=== PATIENT | male | born 1940 | race Caucasian/White ===

== ENCOUNTER 2025-10-13 17:48 | Inpatient (IN) | payer MEDICARE, OTHER, SELFPAY ==
[2025-10-13 10:20] VITALS: BP 139/71
[2025-10-13 10:40] LABS: Hematocrit 40.1 % (39.0-52.0); Hemoglobin 13.4 g/dL (13.0-18.0); Mean Corp Hgb Conc. 33.4 g/dL (33.0-37.0); Mean Corpuscular Volume 87.6 fL (80.0-94.0); Nucleated Red Blood Cells % 0 % (-); Platelet Count 212 10^3/uL (130-400); Red Cell Dist. Width 14.3 % (11.5-14.5)
[2025-10-13 10:59] LABS: ALT (SGPT) 22 U/L (0-50); AST (SGOT) 26 U/L (17-59); Albumin 4.6 g/dl (3.5-5.0); Alkaline Phosphatase 64 U/L (38-126); Blood Urea Nitrogen 58 mg/dl (9-20); Calcium 10.8 mg/dl (8.4-10.2); Carbon Dioxide 22 mmol/L (22-30); Chloride 104 mmol/L (98-107); Glucose 202 mg/dl (70-99); Lipase 82 U/L (23-300); Potassium 5.4 mmol/L (3.5-5.1); Sodium 137 mmol/L (135-145); Total Protein 7.1 g/dl (6.3-8.2); eGFR 11.09
[2025-10-13 11:03] LABS: Troponin I < 0.012 ng/ml
--- NOTE | 2025-10-13 12:51 | ED.GENMED ---
History of Present Illness
<Antwon Nunes PA-C - Last Filed: 10/13/25 18:43>
General
Chief Complaint: Abdominal Symptoms
Time Seen by Provider: 10/13/25 12:42
History of Present Illness
History of Present Illness:
85-year-old male with history of CKD stage IV presents to the emergency department for evaluation of fatigue and malaise associated with intractable vomiting that began last night. He is still passing flatus but denies bowel movements or diarrhea.
He is concerned that he ate something suspicious last night. Denies any dizziness or lightheadedness.
Review of Systems
<Antwon Nunes PA-C - Last Filed: 10/13/25 18:43>
Review of Systems
Allergies reviewed?: Yes
All Other Systems: ROS reviewed and negative except as documented in HPI and ROS
Phy Exam
<Antwon Nunes PA-C - Last Filed: 10/13/25 18:43>
Physical Exam
Physical Exam:
GEN: Well appearing, NAD, WDWN
HEENT: Oral mucosa moist, no scleral icterus
Cardiac: Regular rate
Lung: No respiratory distress, no tachypnea
Abdomen: Soft, generalized tenderness x 4 quadrants
MSK: No gross deformity or injuries
Skin: Good color, no pallor or jaundice, no rashes
Neuro: AO x3, moves all extremities freely
Psych: Calm, cooperative
Course
<Antwon Nunes PA-C - Last Filed: 10/13/25 18:43>
Orders/Labs/Results
Orders:
Orders
10/13/25 Breakfast
Clear Liquid
10/13/25 10:25
Electrocardiogram (*1) Urgent
Reason for Study: Abdominal Pain
EKG- Treatment ONCE
10/13/25 10:31
Complete Blood Count/With Diff Urgent
Comprehensive Metabolic Panel Urgent
Lipase Urgent
Troponin I Urgent
10/13/25 12:51
Electrocardiogram (*1) Urgent
Reason for Study: QTc Monitoring
EKG- Treatment ONCE
0.9% Sodium Chloride 1000 ml [Nss] 1,000 ml IV BOLUS
Ondansetron Injectable [Zofran] 4 mg IV NOW STA
10/13/25 13:56
CT Abd/pel Without Iv Or Oral Urgent
Comment:
Reason For Exam: abd pain, N/V
10/13/25 14:43
HYDROmorphone [Dilaudid] 0.5 mg IV NOW STA
10/13/25 Dinner
Clear Liquid
At Your Request: Full Participation
10/13/25 15:37
Piperacillin/Tazo 3.375 Gram [Zosyn] 3.375 gram in 50 ml IV NOW
10/13/25 16:28
Admit/Transfer Patient As Directed
Co-Sign Provider:
Level of Care: Inpatient admission
Assign to:: Medical/Surgical
Physician / Group: Htay
Diagnosis: Cholecystitis; RADHA
Reason for Hospitalization: IVFs, IV abx
Expected length of stay greater than two midnights?: Yes
ELOS- Estimated Length of Stay in days: 3
I certify the patient meets the requirements for IP care: Yes
PRN Pain Medication Management As Directed
May give lesser potent ordered pain med per pt: Yes
preference::
Protocol:: Medication orders for pain may be administered in a
manner that supports deferring to patient preference
when the pt is:
- Requesting an ordered lesser potent pain medication.
Least to most potent pain medications are defined
as: acetaminophen < NSAID < tramadol < opioids
(morphine, oxycodone, hydromorphone).
- Requesting a lesser dose of the same medication IF
ORDERED.
- Requesting a less intrusive route of administration
if both routes are prescribed by the provider (PO <
IV).
10/13/25 16:30
0.9% Sodium Chloride 1000 ml [Nss] 1,000 ml IV 100 mls/hr
10/13/25 16:31
Code Status As Directed
Resuscitation Status: Full Code
10/13/25 17:59
Acetaminophen [Tylenol] 650 mg PO Q4HPRN PRN mild pain / fever mild pain / fever
Dextrose 50%-Water [Dextrose 50% Syringe] 12.5 grams IV [id number] PRN
Glucagon [GlucaGen] 1 mg IM PRN PRN
HYDROmorphone [Dilaudid] 0.25 mg IV Q3HPRN PRN
Lorazepam [Ativan] 0.5 mg PO DAILYPRN PRN anxiety
Ondansetron Injectable [Zofran] 4 mg IV Q6HPRN PRN
10/13/25 17:59
SURGICAL CONSULT Routine
Consulting Provider: Clifford Salter
Was physician already notified: Yes
Activity As Directed
Activity Level: Out of Bed-Early Mobility
With Assistance
Bedside Glucose Monitoring As Directed
Frequency: AC&HS
Additional Instructions:: Change to q6h if pt on TPN, tube feeding or not eating
Bladder Scan As Directed
Follow Bladder Retention/Intermittent Cath Algorithm?: Yes
PRN if no void in __ hours: 6
Frequency: Per Retention Algorithm
If Bladder Scan Result >: 400
then:: Straight cath
I&O [Intake/ Output] As Directed
Frequency: q12h
Straight Cath As Directed
Frequency: Per Retention Algorithm
Additional Instructions: straight cath as needed per acute urinary retention algorithm for 24 hrs
Additional Instructions: for bladder scan greater than 400 mL
Vital Signs As Directed
Frequency: Per unit guidelines
Weight As Directed
Frequency: Daily
DX Deep Vein Thrombosis Video Routine
10/13/25 20:00
BMP [Basic Metabolic Panel] Routine
10/14/25 00:00
Heparin 5,000 units SC Q8
Piperacillin/Tazo 2.25 Gram [Zosyn] 2.25 grams in 50 ml IV Q8H
10/14/25 Breakfast
NPO
Allow oral meds: Yes
Allow clear liquids: 4hrs prior to procedure
Comment: may have unrestricted clear liquid up to 4 hrs prior to scheduled procedure
Basic Metabolic Panel IN AM
Complete Blood Count/No Diff IN AM
Glycohemoglobin (HgbA1c) IN AM
10/14/25 07:30
Insulin Aspart Corrective Low [Novolog Flexpen-Low Resistance] See Protocol SC AC
10/14/25 08:00
Amlodipine [Norvasc] 5 mg PO DAILY
Atenolol [Tenormin] 25 mg PO DAILY
Rosuvastatin Calcium [Crestor] 10 mg PO DAILY
Abnormal Lab Results
10/13/25
10:31
WBC 16.9 H 10^3/uL
(4.8-10.8)
RBC 4.58 L 10^6/uL
(4.70-6.10)
Abs Immat Gran (auto) 0.1 H 10^3/uL
(0-0.05)
Absolute Neuts (auto) 15.1 H 10^3/uL
(1.4-6.5)
Absolute Lymphs (auto) 0.5 L 10^3/uL
(1.2-3.4)
Absolute Monos (auto) 1.2 H 10^3/uL
(0.1-0.6)
Neutrophils % 89.4 H %
(42.2-75.2)
Lymphocytes % 2.7 L %
(20.5-51.1)
Potassium 5.4 H mmol/L
(3.5-5.1)
BUN 58 H mg/dl
(9-20)
Creatinine 4.9 H* mg/dL
(0.7-1.3)
Glucose 202 H mg/dl
(70-99)
Calcium 10.8 H mg/dl
(8.4-10.2)
10/13/25 10:31
10/13/25 10:31
Vital Signs
Initial and Last Documented VS:
Initial Vital Signs
Temp Pulse Resp BP Pulse Ox
98.2 F 82 16 139/71 98
10/13/25 10:20 10/13/25 10:20 10/13/25 10:20 10/13/25 10:20 10/13/25 10:20
Last Documented Vital Signs
Temp Pulse Resp BP Pulse Ox
98 F 82 16 118/66 95
10/13/25 18:00 10/13/25 10:20 10/13/25 10:20 10/13/25 16:00 10/13/25 16:00
<Preet Frost MD - Last Filed: 10/13/25 15:26>
Orders/Labs/Results
Orders:
Orders
10/13/25 Breakfast
Clear Liquid
10/13/25 10:25
Electrocardiogram (*1) Urgent
Reason for Study: Abdominal Pain
EKG- Treatment ONCE
10/13/25 10:31
Complete Blood Count/With Diff Urgent
Comprehensive Metabolic Panel Urgent
Lipase Urgent
Troponin I Urgent
10/13/25 12:51
Electrocardiogram (*1) Urgent
Reason for Study: QTc Monitoring
EKG- Treatment ONCE
0.9% Sodium Chloride 1000 ml [Nss] 1,000 ml IV BOLUS
Ondansetron Injectable [Zofran] 4 mg IV NOW STA
10/13/25 13:56
CT Abd/pel Without Iv Or Oral Urgent
Comment:
Reason For Exam: abd pain, N/V
10/13/25 14:43
HYDROmorphone [Dilaudid] 0.5 mg IV NOW STA
10/13/25 Dinner
Clear Liquid
At Your Request: Full Participation
10/13/25 15:37
Piperacillin/Tazo 3.375 Gram [Zosyn] 3.375 gram in 50 ml IV NOW
10/13/25 16:28
Admit/Transfer Patient As Directed
Co-Sign Provider:
Level of Care: Inpatient admission
Assign to:: Medical/Surgical
Physician / Group: Htay
Diagnosis: Cholecystitis; RADHA
Reason for Hospitalization: IVFs, IV abx
Expected length of stay greater than two midnights?: Yes
ELOS- Estimated Length of Stay in days: 3
I certify the patient meets the requirements for IP care: Yes
PRN Pain Medication Management As Directed
May give lesser potent ordered pain med per pt: Yes
preference::
Protocol:: Medication orders for pain may be administered in a
manner that supports deferring to patient preference
when the pt is:
- Requesting an ordered lesser potent pain medication.
Least to most potent pain medications are defined
as: acetaminophen < NSAID < tramadol < opioids
(morphine, oxycodone, hydromorphone).
- Requesting a lesser dose of the same medication IF
ORDERED.
- Requesting a less intrusive route of administration
if both routes are prescribed by the provider (PO <
IV).
10/13/25 16:30
0.9% Sodium Chloride 1000 ml [Nss] 1,000 ml IV 100 mls/hr
10/13/25 16:31
Code Status As Directed
Resuscitation Status: Full Code
10/13/25 17:59
Acetaminophen [Tylenol] 650 mg PO Q4HPRN PRN mild pain / fever mild pain / fever
Dextrose 50%-Water [Dextrose 50% Syringe] 12.5 grams IV [id number] PRN
Glucagon [GlucaGen] 1 mg IM PRN PRN
HYDROmorphone [Dilaudid] 0.25 mg IV Q3HPRN PRN
Lorazepam [Ativan] 0.5 mg PO DAILYPRN PRN anxiety
Ondansetron Injectable [Zofran] 4 mg IV Q6HPRN PRN
10/13/25 17:59
SURGICAL CONSULT Routine
Consulting Provider: Clifford Salter
Was physician already notified: Yes
Activity As Directed
Activity Level: Out of Bed-Early Mobility
With Assistance
Bedside Glucose Monitoring As Directed
Frequency: AC&HS
Additional Instructions:: Change to q6h if pt on TPN, tube feeding or not eating
Bladder Scan As Directed
Follow Bladder Retention/Intermittent Cath Algorithm?: Yes
PRN if no void in __ hours: 6
Frequency: Per Retention Algorithm
If Bladder Scan Result >: 400
then:: Straight cath
I&O [Intake/ Output] As Directed
Frequency: q12h
Straight Cath As Directed
Frequency: Per Retention Algorithm
Additional Instructions: straight cath as needed per acute urinary retention algorithm for 24 hrs
Additional Instructions: for bladder scan greater than 400 mL
Vital Signs As Directed
Frequency: Per unit guidelines
Weight As Directed
Frequency: Daily
DX Deep Vein Thrombosis Video Routine
10/13/25 20:00
BMP [Basic Metabolic Panel] Routine
10/14/25 00:00
Heparin 5,000 units SC Q8
Piperacillin/Tazo 2.25 Gram [Zosyn] 2.25 grams in 50 ml IV Q8H
10/14/25 Breakfast
NPO
Allow oral meds: Yes
Allow clear liquids: 4hrs prior to procedure
Comment: may have unrestricted clear liquid up to 4 hrs prior to scheduled procedure
Basic Metabolic Panel IN AM
Complete Blood Count/No Diff IN AM
Glycohemoglobin (HgbA1c) IN AM
10/14/25 07:30
Insulin Aspart Corrective Low [Novolog Flexpen-Low Resistance] See Protocol SC AC
10/14/25 08:00
Amlodipine [Norvasc] 5 mg PO DAILY
Atenolol [Tenormin] 25 mg PO DAILY
Rosuvastatin Calcium [Crestor] 10 mg PO DAILY
Abnormal Lab Results
10/13/25
10:31
WBC 16.9 H 10^3/uL
(4.8-10.8)
RBC 4.58 L 10^6/uL
(4.70-6.10)
Abs Immat Gran (auto) 0.1 H 10^3/uL
(0-0.05)
Absolute Neuts (auto) 15.1 H 10^3/uL
(1.4-6.5)
Absolute Lymphs (auto) 0.5 L 10^3/uL
(1.2-3.4)
Absolute Monos (auto) 1.2 H 10^3/uL
(0.1-0.6)
Neutrophils % 89.4 H %
(42.2-75.2)
Lymphocytes % 2.7 L %
(20.5-51.1)
Potassium 5.4 H mmol/L
(3.5-5.1)
BUN 58 H mg/dl
(9-20)
Creatinine 4.9 H* mg/dL
(0.7-1.3)
Glucose 202 H mg/dl
(70-99)
Calcium 10.8 H mg/dl
(8.4-10.2)
10/13/25 10:31
10/13/25 10:31
Vital Signs
Initial and Last Documented VS:
Initial Vital Signs
Temp Pulse Resp BP Pulse Ox
98.2 F 82 16 139/71 98
10/13/25 10:20 10/13/25 10:20 10/13/25 10:20 10/13/25 10:20 10/13/25 10:20
Last Documented Vital Signs
Temp Pulse Resp BP Pulse Ox
98 F 82 16 118/66 95
10/13/25 18:00 10/13/25 10:20 10/13/25 10:20 10/13/25 16:00 10/13/25 16:00
<Antwon Nunes PA-C - Last Filed: 10/13/25 18:43>
MDM/Problems Addressed
MDM/Problems Addressed:
Imaging reveals findings consistent with acute cholecystitis. Patient was started promptly on IV fluids and IV antibiotics, case was discussed with general surgery, he will be admitted to the hospitalist service given his acute kidney injury off of
his baseline chronic kidney disease
<Antwon Nunes PA-C - Last Filed: 10/13/25 18:43>
*Pulse Oximetry
SaO2: 98
Oxygen Mode of Delivery: Room air
Patient hypoxic: no
*Critical Care Note
Total Time (30-74mins, 75-104mins- exclusive of procedures): Not Applicable
ED Attending Note
<Antwon Nunes PA-C - Last Filed: 10/13/25 18:43>
-
Portions of this chart may have been created with voice recognition software.� Occasional wrong word or��sound alike� substitutions may have occurred due to the inherent limitations of voice recognition software.
<Preet Frost MD - Last Filed: 10/13/25 15:26>
ED Attending Note
Patient seen and examined by attending physician: Yes
ED Attending Note:
I have seen and evaluated the patient with a [id number] encounter. I have spoken to the advance practicer provider and involved in the medical history, the physical exam, medical decision making.
Evaluation and management service: agree unless noted differently below.
Results interpretation: agree unless noted differently below.
Focused HPI: 85-year-old male with a past medical history of hypertension, hyperlipidemia, prior left nephrectomy with chronic kidney disease who presents to the emergency department for evaluation of nausea, vomiting, abdominal pain. Patient
reports onset of symptoms yesterday evening�he says that he had a pork taco and a few hours later developed abdominal discomfort right upper quadrant associated with profuse nausea and vomiting all night. Came to the ER for evaluation. Denies
fever or chills. He denies any other acute complaints. He denies similar symptoms in past.
Physical exam: Awake and alert, nontoxic. Vital signs are normal. His abdomen is tender to palpation in the right upper quadrant. Somewhat dry mucous membranes.
Medical Decision Makin-year-old male presents with abdominal pain associated with nausea and vomiting. Labs here were significant for leukocytosis to 16.9 with predominant neutrophils. He is acute on chronic renal insufficiency with a
creatinine of 4.9 today from baseline reportedly around 3. CT abdomen shows signs concerning for acute cholecystitis. Plan to provide fluids, IV antibiotics. Will discuss with general surgery for consultation, admit to hospitalist service.
Discharge Plan
Departure
Patient Disposition: Admit
Date of Disposition: 10/13/25
Time of Disposition: 15:38
Admit to: Med/Surg
Presentation/result/management discussed w/ accepting MD/DO: Hospitalist
Discharge Problem:
Acute cholecystitis, Acute kidney injury
Interventions
Interventions:
*General Assessment Last Done: 10/13/25 10:20
*Neglect/Abuse Screening Last Done: 10/13/25 10:20
*ED COVID-19 Vaccine History Last Done: 10/13/25 10:20
*ED Influenza Vaccine History Last Done: 10/13/25 10:20
*Risk Screen - Suicide (C-SSRS) Last Done: 10/13/25 10:20
SD-Zwndoi-Dmhameazkb Assessment Last Done: 10/13/25 17:18
[2025-10-13] MEDS: NSS 1000 IV ×2 (13:01→17:06)
[2025-10-13] MEDS: ZOFRAN 4 MG IV (13:02)
[2025-10-13] MEDS: DILAUDID 0.5 MG IV (14:48)
[2025-10-13 15:57] VITALS: BP 130/71
[2025-10-13 16:00] VITALS: BP 118/66
--- NOTE | 2025-10-13 16:05 | CON.GS ---
Consultation
-
Date/Time Consultation Performed: 10/13/25
Requesting Provider: Manju
Performing Provider: Joie
Reason for Consultation: ACC
Medical History
-
Chief Complaint: Abd pain
History of Present Illness:
85M with acute onset upper abd pain that began last night after eating a pork taco. Progressive, RUQ pain without radiation, a/w n/v. No excerbating or relieving factors. Denies f/c. Denies changes to urine/stool. Never had this problem before. Pain
is improved now but not resolved
Past Medical History
Past Medical History: HTN, NIDDM, Renal Failure and Other (left lumbar incisional hernia)
Past Surgical History: Other (left total nephrectomy for CA, right partial nephrectomy)
Social History
Tobacco: Non-Smoker
Alcohol: None
Personal:
Living: With Family
Family History
Family History: Reviewed & Noncontributory
Allergies / Home Medications
Allergy/AdvReac Type Severity Reaction Status Date / Time
Latex, Natural Rubber Allergy Unknown Verified 10/13/25 10:22
�Medication �Instructions �Recorded �Confirmed �Type
acetaminophen 325 mg tablet 650 mg PO Q4H PRN mild pain 10/13/25 10/13/25 History
(Tylenol)
amlodipine 5 mg tablet 5 mg PO DAILY 10/13/25 10/13/25 History
atenolol 25 mg tablet 25 mg PO DAILY 10/13/25 10/13/25 History
calcium carbonate (Tums) 200 mg PO BID PRN stomach pain 10/13/25 10/13/25 History
cyclobenzaprine 5 mg tablet 5 mg PO HS 10/13/25 10/13/25 History
glipizide 2.5 mg tablet 2.5 mg PO DAILY 10/13/25 10/13/25 History
lorazepam 0.5 mg tablet 0.5 mg PO DAILY PRN anxiety 10/13/25 10/13/25 History
rosuvastatin 10 mg tablet 10 mg PO DAILY 10/13/25 10/13/25 History
Review of Systems
-
A 10 point review of systems was completed, and was negative except as per HPI.
Physical Exam
Vital Signs
Temp Pulse Resp BP Pulse Ox
98 F 82 16 118/66 95
10/13/25 16:00 10/13/25 10:20 10/13/25 10:20 10/13/25 16:00 10/13/25 16:00
Lab Results
10/13/25 10:31
10/13/25 10:31
WBC 16.9 10^3/uL (4.8-10.8) H 10/13/25 10:31
Hgb 13.4 g/dL (13.0-18.0) 10/13/25 10:31
Hct 40.1 % (39.0-52.0) 10/13/25 10:31
Plt Count 212 10^3/uL (130-400) 10/13/25 10:31
Abs Immat Gran (auto) 0.1 10^3/uL (0-0.05) H 10/13/25 10:31
Neutrophils % 89.4 % (42.2-75.2) H 10/13/25 10:31
Physical Exam
General: No Apparent Distress
HEENT: Normocephalic and Anicteric
GI: Soft, Non Distended, Tender (ttp ruq) and Other (left lumbar incisional hernia soft nt and reducible)
Skin: Warm and Dry
Neuro: AO x 3
Psych: Calm
Data Reviewed
-
CT Scan: Image Personally Visualized and interpreted, Report Reviewed by me, Discussed with Nurse and Discussed with Patient
Labs: Labs Reviewed by me and Discussed with Patient
Assessment / Plan
-
85M with ACC in setting of solitary kidney and RADHA on CKD
AFVSS, ttp to RUQ
WBC 17K, LFTs WNL, Cr elevated from baseline
CT with distended gb with PCF and GBWT, calcified stone in the neck
Plan:
Admit to Hospitalist
IVF
Clears OK until MN
NPO @ MN
Tentatively for OR tomorrow for CCY
DVT ppx
Trend Cr
[2025-10-13] MEDS: ZOSYN 50 IV ×2 (16:07→23:43)
--- NOTE | 2025-10-13 16:13 | HPS.HSE ---
Family Physician
-
Family Physician: Austin Aden
Chief Complaint
-
Abdominal Pain
History of Present Illness
Patient is an 85-year-old male past medical history of diabetes, hypertension, hyperlipidemia, CKD stage IV secondary to left and partial right nephrectomy due to renal cell carcinoma who presents with abdominal pain. Patient reports onset of
symptoms around 8 PM yesterday. He reports intense right upper quadrant abdominal pain. He reports significant nausea, vomiting and dry heaves. He denies recorded fevers but admits to sweats and chills. He denies diarrhea.
Medical History
Past Medical History
Past Medical History: Reports Other
Additional Past Medical History:
Diabetes Mellitus, Type II
Essential Hypertension
Hyperlipidemia
CKD Stage IV
Renal Cell Carcinoma
Past Surgical History: Reports Other
Additional Past Surgical History:
Left Nephrectomy
Partial Right Nephrectomy
Left Elbow Fracture
Social History
Tobacco: Former Smoker
Family History
Family History: Not pertinent
Allergies / Home Medications
Allergies reflects when Allergies were last updated in [employer].
Home Medications with original date entered in [employer]
Allergy/Medication List:
Allergies
Allergy/AdvReac Type Severity Reaction Status Date / Time
Latex, Natural Rubber Allergy Unknown Verified 10/13/25 10:22
Home Medications
acetaminophen 325 mg tablet (Tylenol) 650 mg PO Q4H PRN mild pain 10/13/25
amlodipine 5 mg tablet 5 mg PO DAILY 10/13/25
atenolol 25 mg tablet 25 mg PO DAILY 10/13/25
calcium carbonate (Tums) 200 mg PO BID PRN stomach pain 10/13/25
cyclobenzaprine 5 mg tablet 5 mg PO HS 10/13/25
glipizide 2.5 mg tablet 2.5 mg PO DAILY 10/13/25
lorazepam 0.5 mg tablet 0.5 mg PO DAILY PRN anxiety 10/13/25
rosuvastatin 10 mg tablet 10 mg PO DAILY 10/13/25
Review of Systems
-
A 12 point ROS was completed and negative except as noted: Yes
Constitutional: Denies Fever
Respiratory: Denies Cough or Trouble Breathing
Cardiac: Denies Chest Pain or Palpitations
Abdomen/GI: Reports See HPI
Physical Exam
Vital Signs
Vital Signs
Temp Pulse Resp BP Pulse Ox
98 F 82 16 118/66 95
10/13/25 16:00 10/13/25 10:20 10/13/25 10:20 10/13/25 16:00 10/13/25 16:00
Physical Exam
General: Comfortable and Conversant
HEENT: Anicteric and Other (Mucous membranes are slightly dry)
Respiratory: Clear and Non Labored Respirations
Cardiac: S1/S2 and Regular Rhythm
GI: Soft and Tender (Right upper quadrant)
Rectal: Deferred by Provider
Genito-urinary: Other (Bladder scan 47mL)
Musculoskeletal: No Clubbing, No Cyanosis and No Edema
Skin: Warm and Dry
Neuro: Awake, Alert, Oriented and Nonfocal/grossly intact
Psych: Calm
Laboratory Results
-
10/13/25 10:31
10/13/25 10:31
Laboratory Results
Total Bilirubin 0.8 mg/dl (0.2-1.3) 10/13/25 10:31
AST 26 U/L (17-59) 10/13/25 10:31
ALT 22 U/L (0-50) 10/13/25 10:31
Alkaline Phosphatase 64 U/L (38-126) 10/13/25 10:31
Troponin I < 0.012 ng/ml 10/13/25 10:31
Lipase 82 U/L (23-300) 10/13/25 10:31
Abd/Pelvis CT:
Impacted 2.5 cm gallstone in the gallbladder neck with accompanying gallbladder distention and wall thickening, raising concern for acute cholecystitis in the appropriate clinical setting.
Data Reviewed
-
CT Scan: Report Reviewed by me
Lab Data: Labs Reviewed by me
Old Records: Reviewed
Impression/Plan
-
Acute Cholecystitis
-Consult General Surgery
-Continue Zosyn
-Allow clears today and NPO after midnight for possible OR tomorrow
-Continue Zofran PRN nausea, and Dilaudid prn pain
Hyperkalemia / Acute Kidney Injury on CKD IV
-Patient reports baseline Cr ~3.3-3.6
-Continue IVFs
-Recheck labs later this evening and in AM
Diabetes Mellitus, Type II
-Hold Glipizide
-Monitor sugars and continue coverage insulin
Essential Hypertension
-Continue amlodipine and atenolol
Hyperlipidemia
-Continue rosuvastatin
DVT proph: SC Heparin
Code Status: Full Code
--- NOTE | 2025-10-13 16:46 | W.PN.UPDATE ---
Update Note
Progress Note Update
This note serves as an addendum to the H&P by occupational health and safety officer SANJUANITA�Lali LOOCASI
HPI�
85M HX total Lt & partial Rt nephrectomy, underlying CKD4 partial R kidney seen at ER:
- pw acute onset and progressive upper abd pain that began last night after eating a pork taco.
- No exacerbating or relieving factors
- associated with intractable vomiting
- still passing flatus
- denies bowel movements or diarrhea.
- NO fever and chills
Relevant VS
Temp Pulse Resp BP Pulse Ox
98 F 82 16 118/66 95
10/13/25 16:00 10/13/25 10:20 10/13/25 10:20 10/13/25 16:00 10/13/25 16:00
PE
Gen: no toxic
HEENT: anicteric
Neck: supple
Lungs: CTA
Cor: RRR S1 S2
Abdomen:� soft
- generalized tenderness x 4 quadrants
- left lumbar incisional hernia soft nt and reducible)
OIL FIELD RIG BUILDER: AAO3 , grossly NFND
MS: no edema
Psych: calm
Relevant Data�
10/13/25
10:31
WBC 16.9 H
Hgb 13.4
Sodium 137
Potassium 5.4 H
BUN 58 H
Creatinine 4.9 H*
eGFR 11.09
Glucose 202 H
Calcium 10.8 H
Troponin I < 0.012
[address] AP
Impacted 2.5 cm gallstone in the gallbladder neck with accompanying gallbladder distention and wall thickening, raising concern for acute cholecystitis in the appropriate clinical setting.
NO prior hospitalist admission:
ASSESSMENT & PLAN
Acute Calculus Cholecystitis
CT evidence of Impacted 2.5 cm GS in the NoGB , GB distention and GBWT
Hi WCC , Afebrile
- agree with Zosyn
- PRN Dilaudid analgesia + PRN anti emetics
- clears today and NPO after midnight for possible OR tomorrow
- IVF
- GS consulted
Hyperkalemia
Pre renal RADHA due to GI loss from persistent N/V
HX CKD4 -reports baseline Cr ~3.3-3.6
HX total Lt & partial Rt nephrectomy, underlying CKD4 partial R kidney V
- c/w IVF
- FU K in the evening and and in AM
T2DM
-Hold Glipizide
- ISS Low
Essential HTN
- c/w amlodipine and atenolol
Hyperlipidemia
- c/w rosuvastatin
DVT Px: SQH
Full code
IP MS
--- NOTE | 2025-10-13 18:00 | PTCARENOTE ---
Pt bladder scanned post void fro 47mL. Admitting DR carter.
[2025-10-13 18:22] VITALS: BMI 23.4
[2025-10-13] MEDS: DILAUDID 0.25 MG IV ×2 (18:34→22:25)
[2025-10-13 20:20] LABS: Blood Urea Nitrogen 58 mg/dl (9-20); Calcium 9.6 mg/dl (8.4-10.2); Carbon Dioxide 23 mmol/L (22-30); Chloride 103 mmol/L (98-107); Estimated Creatinine Clearance 13 ml/min; Glucose 150 mg/dl (70-99); Potassium 6.1 mmol/L (3.5-5.1); Sodium 134 mmol/L (135-145); eGFR 12.62
[2025-10-13] MEDS: DEXTROSE 50% SYRINGE 25 GRAMS IV (20:55)
[2025-10-13] MEDS: NOVOLIN R 5 UNITS IV (20:58)
[2025-10-13 21:04] VITALS: BP 122/60
[2025-10-13 22:04] LABS: Glucose - Point of Care 193 mg/dl (70-99)
[2025-10-13] MEDS: TYLENOL 650 MG PO (22:30)
[2025-10-13 23:23] LABS: Glucose - Point of Care 130 mg/dl (70-99)
[2025-10-13] MEDS: HEPARIN 5000 UNITS SC (23:43)
[2025-10-14] VITALS (23 sets, daily range): BP systolic 87–118; BP diastolic 43–94; BMI 23.4
[2025-10-14 00:58] LABS: Glucose - Point of Care 133 mg/dl (70-99)
[2025-10-14 01:30] LABS: Blood Urea Nitrogen 56 mg/dl (9-20); Calcium 9.2 mg/dl (8.4-10.2); Carbon Dioxide 24 mmol/L (22-30); Chloride 107 mmol/L (98-107); Estimated Creatinine Clearance 13 ml/min; Glucose 127 mg/dl (70-99); Potassium 5.6 mmol/L (3.5-5.1); Sodium 136 mmol/L (135-145); eGFR 12.97
[2025-10-14] MEDS: NOVOLIN R 5 UNITS IV ×2 (01:54→09:05)
[2025-10-14] MEDS: DEXTROSE 50% SYRINGE 25 GRAMS IV ×2 (01:54→09:00)
[2025-10-14 03:07] LABS: Glucose - Point of Care 202 mg/dl (70-99)
[2025-10-14] MEDS: NSS 1000 IV ×3 (03:08→17:26)
[2025-10-14 04:14] LABS: Glucose - Point of Care 152 mg/dl (70-99)
[2025-10-14] MEDS: DILAUDID 0.25 MG IV ×2 (05:28→12:45)
[2025-10-14] MEDS: TYLENOL 650 MG PO (05:28)
[2025-10-14 06:18] LABS: Blood Urea Nitrogen 55 mg/dl (9-20); Calcium 9.2 mg/dl (8.4-10.2); Carbon Dioxide 20 mmol/L (22-30); Chloride 109 mmol/L (98-107); Estimated Creatinine Clearance 14 ml/min; Glucose 116 mg/dl (70-99); Potassium 5.5 mmol/L (3.5-5.1); Sodium 137 mmol/L (135-145); eGFR 13.34
[2025-10-14 06:31] LABS: Hematocrit 34.6 % (39.0-52.0); Hemoglobin 11.6 g/dL (13.0-18.0); Mean Corp Hgb Conc. 33.5 g/dL (33.0-37.0); Mean Corpuscular Volume 90.6 fL (80.0-94.0); Platelet Count 143 10^3/uL (130-400); Red Cell Dist. Width 14.6 % (11.5-14.5)
[2025-10-14 07:50] LABS: Glucose - Point of Care 111 mg/dl (70-99)
--- NOTE | 2025-10-14 08:00 | EDRN ---
Pt is on 2L NC ... d/t sedation
--- NOTE | 2025-10-14 08:11 | EDRN ---
Hepain SC Dose on HOLD for ' now' as ordered by DR Flavia Guzman
[2025-10-14] MEDS: ZOSYN 50 IV ×2 (08:12→18:28)
[2025-10-14] MEDS: HEPARIN SC (08:12)
[2025-10-14] MEDS: CRESTOR 10 MG PO (08:18)
[2025-10-14] MEDS: SODIUM BICARBONATE 50 MEQ IV (08:53)
[2025-10-14 09:02] LABS: Glucose - Point of Care 123 mg/dl (70-99)
[2025-10-14 09:18] LABS: Glycohemoglobin (HgbA1c) 6.0 % (4.0-5.9)
[2025-10-14 10:07] LABS: Glucose - Point of Care 175 mg/dl (70-99)
[2025-10-14 11:13] LABS: Glucose - Point of Care 145 mg/dl (70-99)
[2025-10-14 11:25] LABS: Potassium 4.9 mmol/L (3.5-5.1)
--- NOTE | 2025-10-14 11:46 | W.PN.GS2 ---
Today's Communication / Plan
-
`
Assessment / Plan
-
Assessment: 85-year-old male with acute calculous cholecystitis; RADHA history stage IV CKD and solitary right kidney
Reviewed with patient indications for cholecystectomy. He is in agreement to proceed with surgery.
Laparoscopic cholecystectomy with possible cholangiogram was reviewed in detail including the operative technique, alternative treatment options, benefits and potential risks such as but not limited to bleeding, infectious and wound related
complications, iatrogenic injury to surrounding viscera, bile duct injury, bile leak and postcholecystectomy bowel habit changes. We discussed typical postoperative recovery pending operative findings including potential postoperative
hospitalization care, utilization of surgical drain and recommended activity limitations.
Any of the patient's concerns or questions were confirmed to be fully addressed obtaining informed consent.
Plan: Patient is added onto the OR schedule today 10/14/2025 for laparoscopic cholecystectomy with possible cholangiogram
Zosyn
Continue current supportive care
Appreciate hospitalist assistance with preoperative optimization
Subjective Data
-
Date of Service: October 14, 2025
Patient seen and examined.
Reports stable but persistent right upper quadrant abdominal pain
No nausea or vomiting
No fevers or chills
Objective Data
-
Intake and Output
10/13/25 10/14/25 10/15/25
06:59 06:59 06:59
Intake Total 1490 / 1490
Balance 1490 / 1490
Intake:
IV fluids (Total) 1440 / 1440
Nss 1,000 ml @ 120 mls/hr IV . 1440 / 1440
Q8H20M JUAN RAMON Rx#:[id number]
IV piggybacks 50 / 50
Nss 1,000 ml @ 120 mls/hr IV . 50 / 50
Q8H20M JUAN RAMON Rx#:[id number]
Other:
Number of unmeasured voidings 2
Vital Signs
Temp Pulse Resp BP Pulse Ox
98.9 F 56 18 108/59 97
10/14/25 04:00 10/14/25 08:07 10/14/25 08:07 10/14/25 08:25 10/14/25 08:24
Lab Results
10/14/25 05:17
10/14/25 11:07
Calcium 9.2 mg/dl (8.4-10.2) 10/14/25 05:17
Total Bilirubin 0.8 mg/dl (0.2-1.3) 10/13/25 10:31
AST 26 U/L (17-59) 10/13/25 10:31
ALT 22 U/L (0-50) 10/13/25 10:31
Alkaline Phosphatase 64 U/L (38-126) 10/13/25 10:31
Total Protein 7.1 g/dl (6.3-8.2) 10/13/25 10:31
Albumin 4.6 g/dl (3.5-5.0) 10/13/25 10:31
Physical Exam
-
NAD AAO x 3
ABD: Soft, obese, tenderness to palpation in the right upper quadrant localizing with positive Kate sign; gallbladder palpable
[2025-10-14 12:37] LABS: Glucose - Point of Care 110 mg/dl (70-99)
[2025-10-14] MEDS: ZOFRAN 4 MG IV (12:46)
--- NOTE | 2025-10-14 12:48 | W.CON.NEPH ---
Consultation
-
Date/Time Consultation Requested: 10/13/2025 at 1600
Date/Time Consultation Performed: 10/14/2025 at 10 AM
Requesting Provider: Domenico Jones
Performing Provider: Dr. Victoria
Reason for Consultation: Acute on chronic kidney disease and hyperkalemia
Medical History
-
Chief Complaint: Hyperkalemia and acute on chronic kidney injury
History of Present Illness:
85-year-old male past medical history of diabetes, hypertension, hyperlipidemia, CKD stage IV status post left and partial right nephrectomy due to renal cell carcinoma who presents with abdominal pain. Found to have acute cholecystitis.
Renal consult for chronic kidney disease stage IV creatinine 4.2 and hyperkalemia 6.6.
Follows with nephrology Dr. Ayers in [place]
Currently no chest pain or shortness of breath positive mild nausea with vomiting and dry heaves and moderate abdominal pain currently
Past Medical History
History of diabetes, hypertension, hyperlipidemia, CKD stage IV status post left and partial right nephrectomy due to renal cell carcinoma
Social History
Tobacco: Non-Smoker
Alcohol: None
Family History
Family History: Not Pertinent
Allergies / Home Medications
Allergy/AdvReac Type Severity Reaction Status Date / Time
Latex, Natural Rubber Allergy Unknown Verified 10/13/25 10:22
�Medication �Instructions �Recorded �Confirmed �Type
acetaminophen 325 mg tablet 650 mg PO Q4H PRN mild pain 10/13/25 10/13/25 History
(Tylenol)
amlodipine 5 mg tablet 5 mg PO DAILY 10/13/25 10/13/25 History
atenolol 25 mg tablet 25 mg PO DAILY 10/13/25 10/13/25 History
calcium carbonate (Tums) 200 mg PO BID PRN stomach pain 10/13/25 10/13/25 History
cyclobenzaprine 5 mg tablet 5 mg PO HS 10/13/25 10/13/25 History
glipizide 2.5 mg tablet 2.5 mg PO DAILY 10/13/25 10/13/25 History
lorazepam 0.5 mg tablet 0.5 mg PO DAILY PRN anxiety 10/13/25 10/13/25 History
rosuvastatin 10 mg tablet 10 mg PO DAILY 10/13/25 10/13/25 History
Review of Systems
-
Abdominal pain
All other systems: Negative unless noted
Physical Exam
Vital Signs
Vital Signs
Temp Pulse Resp BP Pulse Ox
99.1 F 67 16 108/58 94
10/14/25 12:42 10/14/25 12:42 10/14/25 12:42 10/14/25 12:42 10/14/25 12:42
Lab Results
WBC 16.2 10^3/uL (4.8-10.8) H 10/14/25 05:17
RBC 3.82 10^6/uL (4.70-6.10) L 10/14/25 05:17
Hgb 11.6 g/dL (13.0-18.0) L 10/14/25 05:17
Hct 34.6 % (39.0-52.0) L 10/14/25 05:17
Plt Count 143 10^3/uL (130-400) D 10/14/25 05:17
Sodium 137 mmol/L (135-145) 10/14/25 05:17
Potassium 4.9 mmol/L (3.5-5.1) 10/14/25 11:07
Chloride 109 mmol/L (98-107) H 10/14/25 05:17
Carbon Dioxide 20 mmol/L (22-30) L 10/14/25 05:17
BUN 55 mg/dl (9-20) H 10/14/25 05:17
Creatinine 4.2 mg/dL (0.7-1.3) H* 10/14/25 05:17
eGFR 13.34 10/14/25 05:17
Glucose 116 mg/dl (70-99) H 10/14/25 05:17
Calcium 9.2 mg/dl (8.4-10.2) 10/14/25 05:17
Albumin 4.6 g/dl (3.5-5.0) 10/13/25 10:31
Physical Exam
General no acute distress
HEENT no cephalic atraumatic extraocular muscle intact no scleral icterus no JVD neck supple
lungs clear to auscultation bilateral
heart regular S1-S2 positive
abdomen tenderness right quadrant no rebound
extremities no edema pulses present bilateral
Neurologically nonfocal alert and oriented x 3
Skin no lesions no abrasions no petechiae
Psych normal affect no bizarre behavior
Data Reviewed
-
CT Scan: Image Personally Visualized and interpreted
Labs: Labs Reviewed by me, Discussed with Physician, Discussed with Nurse and Discussed with Patient
Assessment/Plan
-
85-year-old male past medical history of diabetes, hypertension, hyperlipidemia, CKD stage IV status post left and partial right nephrectomy due to renal cell carcinoma who presents with abdominal pain. Found to have acute cholecystitis.
Renal consult for chronic kidney disease stage IV creatinine 4.2 and hyperkalemia 6.6.
Follows with nephrology Dr. Ayers in [place]
Impression
Acute on chronic kidney disease stage IV. Secondary to sepsis hypertension
Hyperkalemia
Acute cholecystitis
Hypertension
Diabetes controlled
Plan.
IV fluid volume resuscitation
Pending OR
Antibiotics
Per records not on any RAAS inhibitors outpatient.
Monitor urine output.
AM labs.
Renal dose all medications appropriate for current GFR of 14 mL/min
--- NOTE | 2025-10-14 13:08 | W.PN.HOSP.TC ---
Today's Communication/Plan
-
see outlined plan below
Assessment / Plan
Assessment / Plan
Assessment:
Acute Cholecystitis
- GS consulted; for lap jennifer today
- continue pain control, anti-emetics
- continue Zosyn
Hyperkalemia/Acute Kidney Injury on CKD IV
- Patient reports baseline Cr ~3.3-3.6
- continue IVFs
- s/p K temporization earlier today with insulin/glucose and bicarb; repeat K is 4.9
- repeat BMP 6pm
- Nephrology consulted
Diabetes Mellitus, Type II
- Hold Glipizide
- Monitor sugars and continue coverage insulin
Essential Hypertension
- continue amlodipine and atenolol
Hyperlipidemia
- continue rosuvastatin
DVT ppx: SC Heparin
Code Status: Full Code
Anticipated Discharge: > 48 hours
Subjective/Interval History
-
Date of Service: October 14, 2025
reports RUQ pain, no nausea
for Lap jennifer today
K temporized to <5.0
Objective Data
-
Labs:
Laboratory Results
10/14/25 10/14/25 10/14/25
00:57 05:17 11:07
WBC 16.2 H
Hgb 11.6 L
Hct 34.6 L
Plt Count 143 D
Sodium 136 137
Potassium 5.6 H 5.5 H 4.9
Chloride 107 109 H
Carbon Dioxide 24 20 L
BUN 56 H 55 H
Creatinine 4.3 H* 4.2 H*
Glucose 127 H 116 H
Calcium 9.2 9.2
Vital Signs:
Vital Signs
Temp Pulse Resp BP Pulse Ox
99.1 F 67 16 108/58 94
10/14/25 12:42 10/14/25 12:42 10/14/25 12:42 10/14/25 12:42 10/14/25 12:42
I&O
10/13/25 10/14/25 10/15/25
06:59 06:59 06:59
Intake Total 1490 / 1490
Balance 1490 / 1490
Physical Exam
-
General: No Apparent Distress
HEENT: Normocephalic and Atraumatic
Respiratory: Negative Wheezes
Cardiac: Regular Rhythm and S1/S2
GI: Soft
Genito-urinary: No Costovertebral Tender
Neuro: AO x 3
Psych: Calm
Data Reviewed
-
Total Time Spent with Patient (in minutes): 42
Labs: Labs Reviewed by me
--- NOTE | 2025-10-14 13:51 | W.SUR.PREOP ---
Pre-Operative Surgical Note
-
I have examined this patient prior to the performance of the scheduled procedure.
The patient's condition is unchanged from the time of the current History and
Physical and the patient is able to undergo the scheduled procedure.
--- NOTE | 2025-10-14 15:52 | W.IMMPOSTOP ---
Addendum entered and electronically signed by Wily Villanueva MD 10/14/25 16:06:
#[id number]
Original Note:
Surgical Immed Post Op Note
-
Primary Surgeon: Wily Villanueva MD
Assisting Surgeon: Joselyn Diaz PA-c
Wes POSADASA
Pre-op Diagnosis: Acute calculous cholecystitis
Post-op Diagnosis: Acute calculous cholecystitis
Procedure Performed: Laparoscopic cholecystectomy with intraoperative cholangiogram
Anesthesia Type: GETA +0.25% Marcaine
Specimen / Cultures: Gallbladder/none
Estimated Blood Loss: 50 mL
Complications: None immediate
Operative Findings: Tensely distended gallbladder with acute inflammatory omental peel. Cyst needle decompression to aid in grasping and retraction. Critical view of safety achieved for identification of cystic artery and duct. Intraoperative
cholangiogram normal. Cystic duct and artery individually controlled with clips. Intraoperative blood loss associated with hepatic bed oozing as liver capsule and gallbladder wall were essentially fused. Hemostasis assured with monopolar cautery.
1 g TXA administered intraoperatively during cholecystectomy. Sohan 3 g applied to surgical field.
Plan: Clear liquid diet initially postoperative monitoring for ileus
Continue Zosyn secondary to severity of cholecystitis and would recommend total of 5-day course of postoperative antibiotics
Updated patient's friend/contact Dr. Mc Dela Cruz [phone]
[2025-10-14 16:46] LABS: Glucose - Point of Care 127 mg/dl (70-99)
[2025-10-14] MEDS: ZOSYN IV (18:28)
[2025-10-14 20:26] LABS: Blood Urea Nitrogen 55 mg/dl (9-20); Calcium 8.3 mg/dl (8.4-10.2); Carbon Dioxide 18 mmol/L (22-30); Chloride 106 mmol/L (98-107); Estimated Creatinine Clearance 13 ml/min; Glucose 212 mg/dl (70-99); Potassium 5.0 mmol/L (3.5-5.1); Sodium 135 mmol/L (135-145); eGFR 12.97
[2025-10-14 21:48] LABS: Glucose - Point of Care 207 mg/dl (70-99)
[2025-10-14] MEDS: SODIUM BICARBONATE 1100 MEQ IV (22:11)
[2025-10-15] MEDS: TYLENOL 650 MG PO (01:58)
[2025-10-15] MEDS: ZOSYN 50 IV ×3 (01:58→17:12)
[2025-10-15 03:26] VITALS: BP 92/43
[2025-10-15 05:28] VITALS: BP 95/55
[2025-10-15 06:49] LABS: Hematocrit 30.3 % (39.0-52.0); Hemoglobin 9.9 g/dL (13.0-18.0); Mean Corp Hgb Conc. 32.7 g/dL (33.0-37.0); Mean Corpuscular Volume 89.4 fL (80.0-94.0); Platelet Count 136 10^3/uL (130-400); Red Cell Dist. Width 14.7 % (11.5-14.5)
[2025-10-15 06:59] VITALS: BP 108/58
[2025-10-15 07:10] LABS: Blood Urea Nitrogen 58 mg/dl (9-20); Calcium 7.9 mg/dl (8.4-10.2); Carbon Dioxide 21 mmol/L (22-30); Chloride 106 mmol/L (98-107); Estimated Creatinine Clearance 14 ml/min; Glucose 128 mg/dl (70-99); Potassium 5.1 mmol/L (3.5-5.1); Sodium 135 mmol/L (135-145); eGFR 13.34
[2025-10-15 08:10] LABS: Glucose - Point of Care 144 mg/dl (70-99)
[2025-10-15] MEDS: NOVOLOG FLEXPEN-LOW RESISTANCE SC (08:29)
--- NOTE | 2025-10-15 08:29 | W.PN.GS2 ---
Today's Communication / Plan
-
`
Assessment / Plan
-
Assessment: 85-year-old male with acute calculous cholecystitis; RADHA history stage IV CKD and solitary right kidney
POD#1 s/p lap jennifer with IOC
AFVSS
acute blood loss anemia with hgb dropped 11.6 -> 9.9 likely reflective of intraoperative blood loss equilibration and some dilutional with IVFs -- abd examination benign and no clinical signs of post op bleeding
Plan: resume diet as tolerated
agree with repeat H&H at noon
continue zosyn and would cover for a total of 5 days post op; okay to transition to augmentin for oral abx upon dx
heparin sq/SCDs for VTEp
Subjective Data
-
Date of Service: October 15, 2025
pt seen and examined
states he is feeling well post op
minimal post op pain at incision sites
hungry, no nausea, no abdominal bloating/distention
Objective Data
-
Intake and Output
10/14/25 10/15/25 10/16/25
06:59 06:59 06:59
Intake Total 1490 / 1490 1405 / 1405
Output Total 800 / 800
Balance 1490 / 1490 605 / 605
Intake:
Oral fluids 240 / 240
IV fluids (Total) 1440 / 1440 1115 / 1115
NSS 125 / 125
Nss 1,000 ml @ 120 mls/hr IV . 1440 / 1440
Q8H20M JUAN RAMON Rx#:[id number]
IV piggybacks 50 / 50 50 / 50
Nss 1,000 ml @ 120 mls/hr IV . 50 / 50
Q8H20M JUAN RAMON Rx#:[id number]
Output:
Urine, Voided 800 / 800
Other:
Number of unmeasured voidings 2
Vital Signs
Temp Pulse Resp BP Pulse Ox
98.4 F 59 20 95/55 97
10/15/25 03:26 10/15/25 05:28 10/15/25 03:26 10/15/25 05:28 10/15/25 03:26
Lab Results
10/15/25 06:22
Calcium 7.9 mg/dl (8.4-10.2) L 10/15/25 06:22
Total Bilirubin 0.8 mg/dl (0.2-1.3) 10/13/25 10:31
AST 26 U/L (17-59) 10/13/25 10:31
ALT 22 U/L (0-50) 10/13/25 10:31
Alkaline Phosphatase 64 U/L (38-126) 10/13/25 10:31
Total Protein 7.1 g/dl (6.3-8.2) 10/13/25 10:31
Albumin 4.6 g/dl (3.5-5.0) 10/13/25 10:31
Physical Exam
-
NAD AAOx3
ABD: soft, ND, minimal incisional tenderness and RUQ; no R/R/G
incision sites with glue dressings, no ecchymosis, no erythema, no drainage
[2025-10-15] MEDS: CRESTOR 10 MG PO (08:32)
[2025-10-15] MEDS: HEPARIN SC (08:34)
--- NOTE | 2025-10-15 10:23 | W.PN.HOSP.TC ---
Today's Communication/Plan
-
12pm H/H
hold BP meds
follow GS recs: diet orders and Abx
Follow Nephrology recs
Assessment / Plan
Assessment / Plan
Assessment:
Acute Cholecystitis
- s/p lap jennifer 10/14
- continue pain control, anti-emetics
- continue Zosyn x 5 day post-op - Augmentin at discharge
Acute blood loss anemia - intraoperative blood loss equilibration and some dilutional with IVFs
- repeat H/H at 12pm
Hyperkalemia/Acute Kidney Injury on CKD IV
- Patient reports baseline Cr ~3.3-3.6, although now states his baseline could be 4.0 as well
- s/p K temporization
- nephrology following
Diabetes Mellitus, Type II
- Hold Glipizide
- Monitor sugars and continue coverage insulin
Essential Hypertension
- continue amlodipine and atenolol
Hyperlipidemia
- continue rosuvastatin
DVT ppx: SC Heparin
Code Status: Full Code
Anticipated Discharge: Within 24 hours
Subjective/Interval History
-
Date of Service: October 15, 2025
s/p lap jennifer
pain controlled
no n/v
Objective Data
-
Labs:
Laboratory Results
10/15/25 10/15/25
06:22 12:00
WBC 13.2 H
Hgb 9.9 L Pending
Hct 30.3 L Pending
Plt Count 136
Sodium 135
Potassium 5.1
Chloride 106
Carbon Dioxide 21 L
BUN 58 H
Creatinine 4.2 H*
Glucose 128 H
Calcium 7.9 L
Vital Signs:
Vital Signs
Temp Pulse Resp BP Pulse Ox
98.5 F 59 18 108/58 97
10/15/25 06:59 10/15/25 08:32 10/15/25 06:59 10/15/25 08:32 10/15/25 06:59
I&O
10/14/25 10/15/25 10/16/25
06:59 06:59 06:59
Intake Total 1490 / 1490 1405 / 1405
Output Total 800 / 800
Balance 1490 / 1490 605 / 605
Physical Exam
-
General: No Apparent Distress
HEENT: Normocephalic and Atraumatic
Respiratory: Negative Wheezes
Cardiac: Regular Rhythm and S1/S2
GI: Soft
Rectal: Hem Negative
Genito-urinary: No Costovertebral Tender
Musculoskeletal: No Edema
Neuro: AO x 3
Psych: Calm
Data Reviewed
-
Total Time Spent with Patient (in minutes): 42
Labs: Labs Reviewed by me
--- NOTE | 2025-10-15 10:47 | W.PN.NEPH.PH ---
Today's Communication / Plan
-
follow BMP
Assessment/Plan
-
85-year-old male past medical history of diabetes, hypertension, hyperlipidemia, CKD stage IV status post left and partial right nephrectomy due to renal cell carcinoma who presents with abdominal pain. Found to have acute cholecystitis.
Renal consult for chronic kidney disease stage IV creatinine 4.2 and hyperkalemia 6.6.
Follows with nephrology Dr. Ayers in [place]
Impression
Acute on chronic kidney disease stage IV. Secondary to sepsis hypertension
Hyperkalemia
Acute cholecystitis
Hypertension
Diabetes controlled
Plan.
follow BMP
dc planning
can return to OP meds from renal perspective
-
-
Date of Service: October 15, 2025
CC / HPI / ROS
-
Chief Complaint:
CKD5
History of Present Illness:
Cr stable at 4.2
BP stable
eating full breakfast without issues
Review of Systems:
no CP/SOB
Labs
-
Labs:
WBC 13.2 10^3/uL (4.8-10.8) H 10/15/25 06:22
RBC 3.39 10^6/uL (4.70-6.10) L 10/15/25 06:22
Plt Count 136 10^3/uL (130-400) 10/15/25 06:22
Sodium 135 mmol/L (135-145) 10/15/25 06:22
Potassium 5.1 mmol/L (3.5-5.1) 10/15/25 06:22
Chloride 106 mmol/L (98-107) 10/15/25 06:22
Carbon Dioxide 21 mmol/L (22-30) L 10/15/25 06:22
BUN 58 mg/dl (9-20) H 10/15/25 06:22
Creatinine 4.2 mg/dL (0.7-1.3) H* 10/15/25 06:22
eGFR 13.34 10/15/25 06:22
Glucose 128 mg/dl (70-99) H 10/15/25 06:22
Calcium 7.9 mg/dl (8.4-10.2) L 10/15/25 06:22
Albumin 4.6 g/dl (3.5-5.0) 10/13/25 10:31
Physical Exam
-
Vital Signs:
Vital Signs
Temp Pulse Resp BP Pulse Ox
98.5 F 59 18 108/58 97
10/15/25 06:59 10/15/25 08:32 10/15/25 06:59 10/15/25 08:32 10/15/25 06:59
Cardiovascular:: Regular rate and rhythm
Respiratory:: Bilateral: Coarse
Lung Excursion:: Normal
Abdomen:: Nontender and Soft
Bowel Sounds:: Normal
Extremity Edema:: None: Bilateral:
[2025-10-15 11:44] VITALS: BP 100/49
[2025-10-15 12:18] LABS: Hematocrit 33.8 % (39.0-52.0); Hemoglobin 10.9 g/dL (13.0-18.0)
[2025-10-15 12:32] LABS: Glucose - Point of Care 213 mg/dl (70-99)
[2025-10-15] MEDS: MIRALAX 17 GRAMS PO (13:17)
[2025-10-15] MEDS: COLACE 100 MG PO ×2 (13:17→20:31)
[2025-10-15] MEDS: NOVOLOG FLEXPEN-LOW RESISTANCE 2 UNITS SC (13:24)
[2025-10-15 15:05] VITALS: BP 111/62
[2025-10-15 16:48] LABS: Glucose - Point of Care 199 mg/dl (70-99)
--- NOTE | 2025-10-15 16:51 | CM ---
Alert awake oriented patient who lives with his Antonia who lives in a 2 story home with 4 step to enter and bed and bathroom on first floor. He is independent in driving and in all activities of daily living.He was offered VN he declined need.
No VN hx / No SNF history
Pharm[facility]
PCP DR Aden
PLAN Home Declined VN
[2025-10-15] MEDS: NOVOLOG FLEXPEN-LOW RESISTANCE 1 UNITS SC (17:13)
[2025-10-15] MEDS: FLUSH (NSS) 2 FLUSH IV (17:13)
[2025-10-15 21:21] LABS: Glucose - Point of Care 178 mg/dl (70-99)
[2025-10-15 23:41] VITALS: BP 106/59
[2025-10-16] MEDS: ZOSYN 50 IV ×2 (02:08→10:11)
[2025-10-16] MEDS: TYLENOL 650 MG PO (02:13)
[2025-10-16 06:00] VITALS: BMI 24.3
[2025-10-16 07:01] VITALS: BP 115/57
[2025-10-16 07:39] LABS: Hematocrit 30.0 % (39.0-52.0); Hemoglobin 10.0 g/dL (13.0-18.0); Mean Corp Hgb Conc. 33.3 g/dL (33.0-37.0); Mean Corpuscular Volume 89.6 fL (80.0-94.0); Platelet Count 149 10^3/uL (130-400); Red Cell Dist. Width 14.6 % (11.5-14.5)
[2025-10-16 08:07] LABS: Glucose - Point of Care 112 mg/dl (70-99)
[2025-10-16] MEDS: NOVOLOG FLEXPEN-LOW RESISTANCE SC (08:12)
[2025-10-16] MEDS: CRESTOR 10 MG PO (08:33)
[2025-10-16] MEDS: COLACE PO (08:43)
[2025-10-16] MEDS: MIRALAX PO (08:44)
--- NOTE | 2025-10-16 09:34 | W.PN.GS2 ---
Addendum entered and electronically signed by Wily Villanueva MD 10/16/25 10:25:
Patient seen and examined with surgical [employer]PRESENTATIVE. Agree with documented progress note.
Patient advises that he is feeling well and ready for discharge.
Tolerated dietary advancement
Postoperative pain well-controlled
He has had returned of GI function postop
AFVSS
ABD: Soft, nondistended, very minimal incisional tenderness. Incisions with glue dressings. No abdominal wall ecchymosis.
Hemoglobin stable
A/P: POD #2 status post lap jennifer with cholangiogram
Stable for discharge from surgical standpoint
DC with short course of Augmentin for total of 5 days postoperative coverage
Outpatient follow-up in approximately 2 weeks for postop check
Original Note:
Today's Communication / Plan
-
dispo planning
Assessment / Plan
-
Assessment: 85-year-old male with acute calculous cholecystitis; RADHA history stage IV CKD and solitary right kidney
POD#2 s/p lap jennifer with IOC
AFVSS
H/H stable
Plan: continue diet as tolerated
continue zosyn while inpatient and would cover for a total of 5 days post op; okay to transition to augmentin for oral abx upon dx
analgesics as needed
heparin sq/SCDs for VTEp
Ok for discharge from surgical standpoint, d/c instructions updated and d/w pt at bedside
Subjective Data
-
Date of Service: October 16, 2025
Pt seen and examined at bedside with Dr. Villanueva. Denies nausea, vomiting, tolerating diet. Passing gas/loose bm's. Denies much discomfort.
Objective Data
-
Intake and Output
10/15/25 10/16/25 10/17/25
06:59 06:59 06:59
Intake Total 1405 / 1405 1470 / 1470
Output Total 800 / 800 900 / 900
Balance 605 / 605 570 / 570
Intake:
Oral fluids 240 / 240 720 / 720
IV fluids (Total) 1115 / 1115 600 / 600
NSS 125 / 125
IV piggybacks 50 / 50 150 / 150
Output:
Urine, Voided 800 / 800 900 / 900
Vital Signs
Temp Pulse Resp BP Pulse Ox
98.3 F 60 18 115/57 96
10/16/25 07:01 10/16/25 07:01 10/16/25 07:01 10/16/25 07:01 10/16/25 07:01
Lab Results
10/16/25 07:20
Calcium 7.9 mg/dl (8.4-10.2) L 10/15/25 06:22
Total Bilirubin 0.8 mg/dl (0.2-1.3) 10/13/25 10:31
AST 26 U/L (17-59) 10/13/25 10:31
ALT 22 U/L (0-50) 10/13/25 10:31
Alkaline Phosphatase 64 U/L (38-126) 10/13/25 10:31
Total Protein 7.1 g/dl (6.3-8.2) 10/13/25 10:31
Albumin 4.6 g/dl (3.5-5.0) 10/13/25 10:31
Physical Exam
-
NAD AAOx3
ABD: soft, ND, minimal incisional tenderness and RUQ; no R/R/G
incision sites with glue dressings, no ecchymosis, no erythema, no drainage
--- NOTE | 2025-10-16 10:32 | W.PN.HOSP.TC ---
Today's Communication/Plan
-
dc if AM BMP (pending) stable
Assessment / Plan
Assessment / Plan
Assessment:
Acute Cholecystitis
- s/p lap jennifer 10/14
- continue pain control, anti-emetics
- continue Zosyn x 5 day post-op - Augmentin at discharge
Acute blood loss anemia - intraoperative blood loss equilibration and some dilutional with IVFs
- HB stable around 10.0; no indication for transfusion
Hyperkalemia/Acute Kidney Injury on CKD IV
- Patient reports baseline Cr ~3.3-3.6, although now states his baseline could be 4.0 as well
- s/p K temporization
- 10/16 BMP pending.
- nephrology following
Diabetes Mellitus, Type II
- resume Glipizide
- Monitor sugars and continue coverage insulin
Essential Hypertension
- ok to resume amlodipine and atenolol
Hyperlipidemia
- continue rosuvastatin
DVT ppx: SC Heparin
Code Status: Full Code
More than 30 minutes spent in discharge including
Final examination of the patient
Summarizing hospital stay
Instructions for continuing care to all relevant caregivers
Preparation of discharge records, prescriptions, and referral forms
Total time spent (in minutes): 41
Anticipated Discharge: Today
Subjective/Interval History
-
Date of Service: October 16, 2025
tolerating diet, having BM, no complaints
eager for DC
Objective Data
-
Labs:
Laboratory Results
10/16/25
07:20
WBC 11.7 H
Hgb 10.0 L
Hct 30.0 L
Plt Count 149
Sodium Pending
Potassium Pending
Chloride Pending
Carbon Dioxide Pending
BUN Pending
Creatinine Pending
Glucose Pending
Calcium Pending
Vital Signs:
Vital Signs
Temp Pulse Resp BP Pulse Ox
98.3 F 60 18 115/57 96
10/16/25 07:01 10/16/25 07:01 10/16/25 07:01 10/16/25 07:01 10/16/25 07:01
I&O
10/15/25 10/16/25 10/17/25
06:59 06:59 06:59
Intake Total 1405 / 1405 1470 / 1470
Output Total 800 / 800 900 / 900
Balance 605 / 605 570 / 570
Physical Exam
-
General: No Apparent Distress
HEENT: Normocephalic and Atraumatic
Respiratory: Negative Wheezes
Cardiac: Regular Rhythm and S1/S2
GI: Soft
Genito-urinary: No Costovertebral Tender
Neuro: AO x 3
Psych: Calm
Data Reviewed
-
Total Time Spent with Patient (in minutes): 42
Labs: Labs Reviewed by me
--- NOTE | 2025-10-16 10:34 | W.DCSUMMARY ---
Discharge Summary
Discharge Data
Date of Admission: 10/13/25
Date of Discharge: 10/16/25
-
Pending Results: No
Hospital Course
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 CT confirmed acute cholecystitis and
patient underwent lap jennifer on 10/14. Post-op he was able to tolerate diet and pain was controlled. He did have acute blood loss anemia and Hb stabilized around 10.0. He was recommended to finish 5 total days of Augmentin at discharge. His course
was also complicated by RADHA on CKD and his Cr improved to 4.4 at discharge. He will repeat BMP in 1 week. He was discharged home 10/16/25.
Discharge Plan
-
Patient Disposition: Home (Routine Discharge)
Discharge Diagnosis/Procedures: Acute calculous cholecystitis. Laparoscopic cholecystectomy with cholangiogram. RADHA on CKD stage 4
Condition: Good
Diet: As tolerated, Low Fat and Diabetic, Carb Controlled
Additional Diets: Smaller meals initially after surgery as abdominal bloating and distention are common for the first few days
Activity: No strenuous activity
Additional Activity: Do not lift over 20lbs for the next 2-3 weeks
Blood Work: repeat BMP in 1 week
Wound Care: glue dressing will flake off your incisions on its own over the next 2-3 weeks
Activity Restrictions/Additional Instructions:
[facility] General Surgery
Wily Villanueva MD FACS
[facility]
[address], [address]
[place] [address]
[phone]
Post-Operative Instructions for Gallbladder Surgery
The incision sites are sealed with a surgical glue dressing.� It is safe to shower at any time after surgery when the glue is dry.� Let shower water run over the incisions and then pat dry.
Glue dressing typically peels off in 2-3 weeks.
Abdominal/incisional pain and discomfort, shoulder/scapular pain, bloating, and mild nausea, as well as bruising/stiffness and swelling at the incision sites are common after surgery.� If felt to be excessive, notify us.
Please start postoperative pain management using over the counter medications such as Tylenol and Ibuprofen, per instructions on the bottle, as long as there are no medical reasons why you cannot take these medications.
Ice the incisions sites for 20 minutes every hour or so to help with postoperative incisional pain and reduce postoperative surgical site swelling.� Take care NOT to get an ice burn on the skin surface.
A warm heating pad is often helpful to alleviate shoulder/scapular back pains after laparoscopic procedures.� This pain typically dissipates 24-72hrs post op.
Transition to a low fat diet as tolerated after surgery if not experiencing postoperative nausea or significant bloating/distention.� Some fatty food intolerance may occur shortly after surgery (cramps,bloating, nausea,diarrhea with fat intake).
Constipation is common following surgery and postoperative narcotic use.� May use a stool softener such as Colace (100 mg 2x day) to prevent constipation
If no BM 24hrs after surgery, recommend starting daily Miralax
If no BM in 24-48hrs after starting Miralax --> recommend then using a dose of magnesium citrate or milk of magnesia with a Senokot tablet to help alleviate post operative constipation as long as there is no nausea/vomiting and passing gas.
Resume all preoperative medications as directed on the discharge medication reconciliation paper.
Do not drive or drink alcohol for 24 hrs after having anesthesia -OR- while taking narcotic pain medications.
Resume regular daily light activities, such as walking, standing and going up/down stairs as tolerated within 24hrs of surgery.� Please refrain from lifting over 15-20 lbs or strenuous exercise until postoperative follow up visit &/or approximately
3-4 weeks.�
Call the office with a fever above 101� F, nausea with vomiting, severe abdominal pain, yellowing of skin or eyes, spreading redness and drainage from incision sites or with any concerns/questions.
If not arranged prior to surgery, please call the office to schedule or confirm your postoperative surgical follow-up office visit with Dr. Villanueva.
Referrals:
Austin Aden MD [Family Provider, Internal Medicine] - in one week
Wily Villanueva MD [Active, Surgical] - in two to four weeks
Prescriptions:
New
amoxicillin-pot clavulanate 875-125 mg tablet
1 tab PO Q12 Qty: 7 0RF
Continued
acetaminophen [Tylenol] 325 mg Tablet
650 mg PO Q4H PRN (Reason: mild pain)
atenolol 25 mg Tablet
25 mg PO DAILY
amlodipine 5 mg Tablet
5 mg PO DAILY
lorazepam 0.5 mg Tablet
0.5 mg PO DAILY PRN (Reason: anxiety)
calcium carbonate [Tums] 200 mg calcium (500 mg) Tablet,Chewable
200 mg PO BID PRN (Reason: stomach pain )
cyclobenzaprine 5 mg Tablet
5 mg PO HS
rosuvastatin 10 mg Tablet
10 mg PO DAILY
glipizide 2.5 mg Tablet
2.5 mg PO DAILY
allopurinol 100 mg Tablet
DAILY
Discharge Orders:
Discharge Patient (As Directed); Ordered 10/16/25
Ordered By: Flavia Guzman
Discharge Date and Time
Print Language: ROMANSH
[2025-10-16 10:35] LABS: Blood Urea Nitrogen 71 mg/dl (9-20); Calcium 8.2 mg/dl (8.4-10.2); Carbon Dioxide 22 mmol/L (22-30); Chloride 107 mmol/L (98-107); Estimated Creatinine Clearance 13 ml/min; Glucose 114 mg/dl (70-99); Potassium 5.2 mmol/L (3.5-5.1); Sodium 136 mmol/L (135-145); eGFR 12.62
--- NOTE | 2025-10-16 11:10 | W.PN.NEPH.PH ---
Today's Communication / Plan
-
dc
Assessment/Plan
-
85-year-old male past medical history of diabetes, hypertension, hyperlipidemia, CKD stage IV status post left and partial right nephrectomy due to renal cell carcinoma who presents with abdominal pain. Found to have acute cholecystitis.
Renal consult for chronic kidney disease stage IV creatinine 4.2 and hyperkalemia 6.6.
Follows with nephrology Dr. Ayers in [place]
Impression
Acute on chronic kidney disease stage IV. Secondary to sepsis hypertension
Hyperkalemia
Acute cholecystitis
Hypertension
Diabetes controlled
Plan.
follow BMP
dc planning
can return to OP meds from renal perspective
-
-
Date of Service: October 16, 2025
CC / HPI / ROS
-
Chief Complaint:
CKD5
History of Present Illness:
Cr stable at 4.4
BP stable
K 5.2
Review of Systems:
no CP/SOB
Labs
-
Labs:
WBC 11.7 10^3/uL (4.8-10.8) H 10/16/25 07:20
RBC 3.35 10^6/uL (4.70-6.10) L 10/16/25 07:20
Hgb 10.0 g/dL (13.0-18.0) L 10/16/25 07:20
Hct 30.0 % (39.0-52.0) L 10/16/25 07:20
Plt Count 149 10^3/uL (130-400) 10/16/25 07:20
Sodium 136 mmol/L (135-145) 10/16/25 07:20
Potassium 5.2 mmol/L (3.5-5.1) H 10/16/25 07:20
Chloride 107 mmol/L (98-107) 10/16/25 07:20
Carbon Dioxide 22 mmol/L (22-30) 10/16/25 07:20
BUN 71 mg/dl (9-20) H 10/16/25 07:20
Creatinine 4.4 mg/dL (0.7-1.3) H* 10/16/25 07:20
eGFR 12.62 10/16/25 07:20
Glucose 114 mg/dl (70-99) H 10/16/25 07:20
Calcium 8.2 mg/dl (8.4-10.2) L 10/16/25 07:20
Albumin 4.6 g/dl (3.5-5.0) 10/13/25 10:31
Physical Exam
-
Vital Signs:
Vital Signs
Temp Pulse Resp BP Pulse Ox
98.3 F 60 18 115/57 96
10/16/25 07:01 10/16/25 07:01 10/16/25 07:01 10/16/25 07:01 10/16/25 08:00
Cardiovascular:: Regular rate and rhythm
Respiratory:: Bilateral: Coarse
Lung Excursion:: Normal
Abdomen:: Nontender and Soft
Bowel Sounds:: Normal
Extremity Edema:: None: Bilateral:
== END 2025-10-16 11:40 | disposition home or self-care (01) | DRG 854 ==
LOC: 4 EAST ACU 17:48
PROVIDERS: Physician Assistant Medical; Radiology Diagnostic Radiology; Registered Nurse; Student in an Organized Health Care Education/Training Program; Surgery; ADMITTING PHYSICIAN Internal Medicine; ATTENDING PHYSICIAN Internal Medicine; CONSULT PHYSICIAN Specialist; CONSULT PHYSICIAN Surgery; EMERGENCY PHYSICIAN Emergency Medicine; FAMILY PHYSICIAN Internal Medicine Geriatric Medicine
PROC: BF131ZZ Fluoroscopy of Gallbladder and Bile Ducts using Low Osmolar Contrast (ICD-10-PCS; 2025-10-14)
PROC: 0FT44ZZ Resection of Gallbladder, Percutaneous Endoscopic Approach (ICD-10-PCS; 2025-10-14)
DX: A41.9 Sepsis, unspecified organism (principal); D62 Acute posthemorrhagic anemia; K80.01 Calculus of gallbladder with acute cholecystitis with obstruction; N18.4 Chronic kidney disease, stage 4 (severe); N17.9 Acute kidney failure, unspecified; I12.9 Hypertensive chronic kidney disease with stage 1 through stage 4 chronic kidney disease, or unspecified chronic kidney disease; E11.22 Type 2 diabetes mellitus with diabetic chronic kidney disease; E78.5 Hyperlipidemia, unspecified; E87.5 Hyperkalemia; R65.20 Severe sepsis without septic shock; Z79.84 Long term (current) use of oral hypoglycemic drugs; Z79.899 Other long term (current) drug therapy; Z87.891 Personal history of nicotine dependence
CPT/HCPCS: 74176; 74300; 76000; 80048; 80053; 82962; 83036; 83690; 84132; 84484; 85014; 85018; 85025; 85027; 88304; 93005; A4300